=== PATIENT | male | born 1960 | race Caucasian/White ===

== ENCOUNTER 2020-10-01 20:26 | Emergency (ER) | payer OTHER, SELFPAY ==
[2020-10-01 20:41] VITALS: BP 196/97; PULSE 86; RESP 18; TEMP 36.8; O2SAT 96; BMI 32.2
[2020-10-01 20:53] VITALS: BP 177/125; PULSE 84; RESP 18; O2SAT 96
--- NOTE | 2020-10-01 21:15 | CTR_ITS ---
PROCEDURE INFORMATION: Exam: CT Head Without Contrast Exam date and time: 10/01/2020 9:19 PM Age: 60 years old Clinical indication: Weakness, extremity; Right; Additional info: Syncope, transient facial droop TECHNIQUE: Imaging protocol: Computed tomography of the head without contrast. Radiation optimization: All CT scans at this facility use at least one of these dose optimization techniques: automated exposure control; mA and/or kV adjustment per patient size (includes targeted exams where dose is matched to clinical indication); or iterative reconstruction. COMPARISON: No relevant prior studies available. RADIATION DOSE METRICS: Total DLP (mGy-cm): 942.73 FINDINGS: Brain: No hemorrhage. No significant white matter disease. No edema. Cerebral ventricles: No hydrocephalus Bones/joints: No acute fracture. Paranasal sinuses: Visualized sinuses are unremarkable. No fluid levels. Mastoid air cells: No significant mastoid effusion. Soft tissues: Unremarkable. CT/CT head wo con* [id number] IMPRESSION: No acute intracranial abnormality. Radiation Dose CTDIVOL = (mGy): DLP = 942.73 (mGy-cm)
--- NOTE | 2020-10-01 21:15 | XR_ITS ---
WS: [id number] Exam: XR chest 1V portable [id number] Date/Time of Exam: 10/01/2020 9:19 PM Reason For Exam: syncope No priors. The lungs are fully expanded and clear. 1 cm calcified density in the right lower lung zones most lik ottoniel a granuloma. Heart size is normal. There is prominence of the superior mediastinum. Regional bony elements are intact. Monitoring leads superimpose the chest. Recommendations: A detailed PA and lateral chest radiograph would be helpful for more detailed evalua tion. XR/XR chest 1V portable [id number] IMPRESSION: 1. Prominence of the superior mediastinum. A mediastinal mass or lymphadenopath y not excluded. 2. The chest is otherwise unremarkable.
--- NOTE | 2020-10-01 21:17 | ECG_ITS ---
[facility] Test Date: 2020-10-01 Pat Name: Ruiz Peterson Department: Room: Gender: Male Inventory Associate And Driver: : 1960 Requested By: Lissy Meadows I Order Number: [id number] John MD: Denise Pascual M.D. Measurements Intervals [place] Rate: 84 P: 25 MD: 145 QRS: 23 QRSD: 95 T: 41 QT: 337 QTc: 400 Interpretive Statements SINUS RHYTHM No previous ECG available for comparison Electronically Signed On 10-02-2020 17:32:10 CDT by Denise Pascual M.D. [id number]
[2020-10-01 21:26] LABS: Basophils % 0.5 %; Eosinophils % 0.5 %; Hemoglobin 16.3 g/dL (11.7-16.6); Lymphocytes # 1.8 10^3/uL (0.8-4.8); Lymphocytes % 31.3 %; Mean Corpuscular HGB Conc 33.3 g/dL (30.0-36.0); Mean Corpuscular Hemoglobin 29.4 pg (28.0-34.0); Mean Corpuscular Volume 88.4 fL (80-94); Mean Platelet Volume 9.4 fL (7.4-10.4); Monocytes # 0.4 10^3/uL (0.2-0.9); Monocytes % 7.3 %; Neutrophils # 3.49 10^3/uL (1.8-7.7); Neutrophils % 60.2 %; Nucleated Red Blood Cells % 0 %; Platelet Count 201 10^3/cmm (130-400); Red Blood Count 5.54 10^6/uL (4.1-5.3); Red Cell Distribution Width 14.7 % (12.1-15.1); White Blood Count 5.8 10^3/uL (4.0-10.0)
[2020-10-01 21:40] LABS: Troponin(5th) Baseline 9 ng/L (0-15)
[2020-10-01 21:47] LABS: Procalcitonin 0.04 ng/mL (0-0.5); Thyroid Stimulating Hormone 4.29 uIU/mL (0.27-4.20)
[2020-10-01 22:00] LABS: Alanine Aminotransferase 22 U/L (0-41); Albumin Level 4.1 g/dL (3.5-5.2); Alkaline Phosphatase 66 IU/L (40-130); Aspartate Amino Transferase 29 U/L (0-40); Blood Urea Nitrogen 11 mg/dL (6-20); C Reactive Protein 1.3 mg/L (0.0-4.9); Calcium 9.1 mg/dL (8.5-10.5); Carbon Dioxide 26 mmol/L (22-29); Chloride 101 mmol/L (98-107); Globulin 2.3 g/dL (1.3-4.6); Glomerular Filtration Rate 68.8 mL/min (90-130); Glucose 88 mg/dL (65-115); Magnesium 1.9 mg/dL (1.7-2.3); Osmolality Calculated 285 mOsm/kg (285-295); Sodium 138 mmol/L (136-145); Total Bilirubin 0.4 mg/dL (0.15-1.2); Total Protein 6.4 g/dL (6.6-8.7)
[2020-10-01 22:02] LABS: Creatine Phosphokinase 347 U/L (39-308)
[2020-10-01 22:31] VITALS: PULSE 82; RESP 12; O2SAT 94
[2020-10-01] MEDS: sodium chloride 0.9% 1,000 ML 999 ML IV (22:37)
[2020-10-01 22:39] VITALS: BP 162/104; PULSE 77; RESP 15; O2SAT 94
[2020-10-01 22:44] LABS: Add Urine Microscopic? NO; Charge for UA Resulting for Rev
[2020-10-01 22:59] LABS: Bilirubin Urine Neg (Negative); Blood Urine Neg (Negative); Glucose Urine UA Norm (Normal); Ketones Urine Negative (Negative); Leukocyte Esterase Urine Negative (Negative); Nitrate Urine Negative (Negative); Protein Urine Neg (Negative); Urine Appearance Clear (CLEAR); Urine Color Yellow (Yellow); Urobilinogen Urine 1 mg/dL (Negative); pH Urine 7 (5-7)
[2020-10-01 23:20] LABS: Troponin 5 2HR 8.04 ng/L (0-15)
[2020-10-01 23:21] LABS: Troponin 5 2HR Delta -0.96 ABS# (0-10)
[2020-10-01 23:40] VITALS: BP 175/126; PULSE 70; RESP 16; O2SAT 96
--- NOTE | 2020-10-02 | W.ED.SYNCOPE ---
HPI - Syncope General: Chief Complaint: Syncope Stated Complaint: stroke like symptoms Time Seen by Provider: 10/01/20 21:01 Source: patient and family () Mode of arrival: ambulatory Limitations: no limitations History of Present Illness: HPI narrative: Patient is a 60-year-old male with no significant past medical history other than anxiety presents to the emergency department for evaluation. Early this morning at about 10:00 he walked into [facility] and had a syncopal event. He was unconscious for just a short period and following that he was evaluated at [facility] where he was medically cleared. He was discharged and he went about his day doing things that exerted him including mowing lawns. Later in the day he developed right-sided facial numbness, his states that his speech was very slurred and she could not understand what he was saying and he had a right facial droop. This happened about 3 hours ago and the symptoms lasted for about 15 minutes and resolved spontaneously. They were concerned and so brought him in to be evaluated. The patient did admit that he injects testosterone that is not prescribed to him, he uses this for work-up. His and the patient also admits that the patient drinks 40 ounces of Mountain Dew every morning, he admits to drinking probably too much Mountain Dew. He is wondering if the above could be related to his symptoms. MD complaint: loss of consciousness Prodromal symptoms: none Witnessed: Yes - by Bystander Associated symptoms: Reports chest pain; Deny abdominal pain, fever(s), headache(s), nausea, short of breath, vertigo or weakness Treatments prior to arrival: none Review of Systems General: Reports: 10 or more systems reviewed and unremarkable except in HPI and below Const: Denies: fever(s) Card: Reports: chest pain GI: Denies: abdominal pain or nausea Neuro: Denies: headache(s) or vertigo Physical Exam Const: COMMON NORMALS: no acute distress, average body habitus, patient oriented x3, no limitations, healthy appearing, alert and well nourished HENMT: COMMON NORMALS: normocephalic, atraumatic and moist oral mucous membranes HEAD & SCALP: normocephalic and atraumatic Neck/C-Spine: COMMON NORMALS: no meningeal signs and no JVD Resp: COMMON NORMALS: normal respiratory effort, No retractions, No use of accessory muscles, clear to auscultation bilaterally and percussion normal AUSCULTATION: clear to auscultation bilaterally PERCUSSION: percussion normal Cardio: COMMON NORMALS: no JVD, regular rate, regular rhythm, S1 normal heart sound present, S2 normal heart sound present, No gallops present (Cardio), No clicks present (Cardio), No murmurs present (Cardio), No rub (Cardio) and Peripheral pulses 2+ throughout RATE: regular rate RHYTHM: regular rhythm HEART SOUNDS: S1 normal heart sound present and S2 normal heart sound present PERIPHERAL PULSES: Peripheral pulses 2+ throughout GI: COMMON NORMALS: Normal to inspection, nondistended, normoactive bowel sounds present, Soft to palpation, non-tender, No hepatosplenomegaly present, no masses and no bruits PALPATION: Yes Soft to palpation and Yes No hepatosplenomegaly present Extremity: COMMON NORMALS: normal to inspection, full ROM, capillary refill normal, no calf tenderness and no pedal edema Neuro: COMMON NORMALS: patient oriented x3 SENSORIUM/ORIENTATION: Yes alert MENINGEAL SIGNS: Yes no meningeal signs Skin: COMMON NORMALS: no rashes or lesions noted, no wounds, turgor normal, no jaundice, no petechiae and no mottling GENERAL SKIN EXAM: no rashes or lesions noted and turgor normal Course Reevaluation(s): Reevaluation #1: Discussed his lab and imaging findings with him. Explained that his evaluation is unremarkable at this time. We will discharge him home with no new orders but he is advised to avoid medications that had not prescribed. He has mildly elevated CPK and he is to drink plenty of water to prevent worsening and to prevent kidney damage. He will follow-up with his primary care provider as soon as possible. I will treat him as a possible TIA because the stated that he had slurred speech and facial droop and so a prescription for atorvastatin and aspirin were given to the patient. He voiced understanding and they are in agreement with the plan. Time: 00:00 Vital Signs: Vital signs: Vital Signs Temperature 98.3 F 10/01/20 20:41 Pulse Rate 73 10/02/20 00:28 Respiratory Rate 18 10/02/20 00:28 Blood Pressure 164/109 10/02/20 00:28 Pulse Oximetry 96 10/02/20 00:28 MDM - Syncope MDM Narrative: Medical decision making narrative: 60-year-old male who presents to the emergency department with slurred speech, facial droop, facial numbness that lasted about 15 minutes. All symptoms resolved prior to arrival in the emergency department. Evaluation in the emergency department was unremarkable and he is being managed as a case of a TIA. He was counseled and given a prescription for atorvastatin and aspirin and he is to follow-up with his primary care provider. Lab Data: Labs: Lab Results 10/01/20 10/01/20 10/01/20 Range/Units 21:05 21:05 21:05 WBC 5.8 (4.0-10.0) 10^3/ uL RBC 5.54 H (4.1-5.3) 10^6/u L Hgb 16.3 (11.7-16.6) g/dL Hct 49.0 (42.0-52.0) % MCV 88.4 (80-94) fL MCH 29.4 (28.0-34.0) pg MCHC 33.3 (30.0-36.0) g/dL RDW 14.7 (12.1-15.1) % Plt Count 201 (130-400) 10^3/c mm MPV 9.4 (7.4-10.4) fL Neut % (Auto) 60.2 % Lymph % (Auto) 31.3 % [place] % (Auto) 7.3 % Eos % (Auto) 0.5 % Baso % (Auto) 0.5 % Neut # (Auto) 3.49 (1.8-7.7) 10^3/u L Lymph # (Auto) 1.8 (0.8-4.8) 10^3/u L [place] # (Auto) 0.4 (0.2-0.9) 10^3/u L Eos # (Auto) 0.0 (0.0-0.8) 10^3/u L Baso # (Auto) 0.0 (0.0-0.1) 10^3/u L Nucleated RBC % (a uto) 0 % Nucleated RBCs # 0.0 /100WBC Sodium 138 (136-145) mmol/L Potassium 4.0 (3.5-5.1) mmol/L Chloride 101 (98-107) mmol/L Carbon Dioxide 26 (22-29) mmol/L Anion Gap 15.0 (5-19) BUN 11 (6-20) mg/dL Creatinine 1.1 (0.7-1.2) mg/dL GFR Calculation 68.8 L (90-130) mL/min Glucose 88 (65-115) mg/dL Calculated Osmolal ity 285 (285-295) mOsm/k g Calcium 9.1 (8.5-10.5) mg/dL Magnesium 1.9 (1.7-2.3) mg/dL Total Bilirubin 0.4 (0.15-1.2) mg/dL AST 29 (0-40) U/L ALT 22 (0-41) U/L Alkaline Phosphata se 66 (40-130) IU/L Creatine Kinase 347 H* (39-308) U/L Troponin T Baselin e 9 (0-15) ng/L Troponin T 120 Min kristen (0-15) ng/L Delta Troponin T (0-10) ABS# C-Reactive Protein 1.3 (0.0-4.9) mg/L Total Protein 6.4 L (6.6-8.7) g/dL Albumin 4.1 (3.5-5.2) g/dL Globulin 2.3 (1.3-4.6) g/dL Procalcitonin 0.04 (0-0.5) ng/mL TSH 4.29 H (0.27-4.20) uIU/ mL Urine Color (Yellow) Urine Appearance (CLEAR) Urine pH (5-7) Ur Specific Gravit y (1.005-1.030) Urine Protein (Negative) Urine Glucose (UA) (Normal) Urine Ketones (Negative) Urine Blood (Negative) Urine Nitrate (Negative) Urine Bilirubin (Negative) Urine Urobilinogen (Negative) mg/dL Ur Leukocyte Valencia ase (Negative) 10/01/20 10/01/20 Range/Units 22:30 22:56 WBC (4.0-10.0) 10^3/ uL RBC (4.1-5.3) 10^6/u L Hgb (11.7-16.6) g/dL Hct (42.0-52.0) % MCV (80-94) fL MCH (28.0-34.0) pg MCHC (30.0-36.0) g/dL RDW (12.1-15.1) % Plt Count (130-400) 10^3/c mm MPV (7.4-10.4) fL Neut % (Auto) % Lymph % (Auto) % [place] % (Auto) % Eos % (Auto) % Baso % (Auto) % Neut # (Auto) (1.8-7.7) 10^3/u L Lymph # (Auto) (0.8-4.8) 10^3/u L [place] # (Auto) (0.2-0.9) 10^3/u L Eos # (Auto) (0.0-0.8) 10^3/u L Baso # (Auto) (0.0-0.1) 10^3/u L Nucleated RBC % (a uto) % Nucleated RBCs # /100WBC Sodium (136-145) mmol/L Potassium (3.5-5.1) mmol/L Chloride (98-107) mmol/L Carbon Dioxide (22-29) mmol/L Anion Gap (5-19) BUN (6-20) mg/dL Creatinine (0.7-1.2) mg/dL GFR Calculation (90-130) mL/min Glucose (65-115) mg/dL Calculated Osmolal ity (285-295) mOsm/k g Calcium (8.5-10.5) mg/dL Magnesium (1.7-2.3) mg/dL Total Bilirubin (0.15-1.2) mg/dL AST (0-40) U/L ALT (0-41) U/L Alkaline Phosphata se (40-130) IU/L Creatine Kinase (39-308) U/L Troponin T Baselin e (0-15) ng/L Troponin T 120 Min kristen 8.04 (0-15) ng/L Delta Troponin T -0.96 L (0-10) ABS# C-Reactive Protein (0.0-4.9) mg/L Total Protein (6.6-8.7) g/dL Albumin (3.5-5.2) g/dL Globulin (1.3-4.6) g/dL Procalcitonin (0-0.5) ng/mL TSH (0.27-4.20) uIU/ mL Urine Color Yellow (Yellow) Urine Appearance Clear (CLEAR) Urine pH 7 (5-7) Ur Specific Gravit y 1.010 (1.005-1.030) Urine Protein Neg (Negative) Urine Glucose (UA) Norm (Normal) Urine Ketones Negative (Negative) Urine Blood Neg (Negative) Urine Nitrate Negative (Negative) Urine Bilirubin Neg (Negative) Urine Urobilinogen 1 H (Negative) mg/dL Ur Leukocyte Valencia ase Negative (Negative) Imaging Data^: CT Head: Attestation: I personally reviewed and interpreted this imaging study as follows: Radiologist's impression: [facility] [id number] Scan ReportSigned Patient: Ruiz Peterson #: [id number]: 1960cct#:[id number]/Sex: 60 / MADM Date: 10/01/20Loc: ERRoom/Bed:Attending Dr: Ordering Provider/Ordering MD: Lissy Meadows MD, [facility] [place] Date of Service: 10/01/20 Procedure(s): CT head wo con* [id number] Accession Number(s): [id number] Report Number: [id number] PROCEDURE INFORMATION: Exam: CT Head Without Contrast Exam date and time: 10/01/2020 9:19 PM Age: 60 years old Clinical indication: Weakness, extremity; Right; Additional info: Syncope, transient facial droop TECHNIQUE: Imaging protocol: Computed tomography of the head without contrast. Radiation optimization: All CT scans at this facility use at least one of these dose optimization techniques: automated exposure control; mA and/or kV adjustment per patient size (includes targeted exams where dose is matched to clinical indication); or iterative reconstruction. COMPARISON: No relevant prior studies available. RADIATION DOSE METRICS: Total DLP (mGy-cm): 942.73 FINDINGS: Brain: No hemorrhage. No significant white matter disease. No edema. Cerebral ventricles: No hydrocephalus Bones/joints: No acute fracture. Paranasal sinuses: Visualized sinuses are unremarkable. No fluid levels. Mastoid air cells: No significant mastoid effusion. Soft tissues: Unremarkable. CT/CT head wo con* [id number] IMPRESSION: No acute intracranial abnormality. Radiation Dose CTDIVOL = (mGy): DLP = 942.73 (mGy-cm) Dictated By:Joaquin Saunders MDSigned By:Joaquin Saunders MDSigned Date/Time:10/01/202236DD/ 34 EKG Data^: EKG 1: Attestation: I personally reviewed and interpreted this EKG as follows: EKG interpretation date: 10/01/20 EKG interpretation time: 20:58 Prior EKG tracings: available for review Interpretation: Sinus rhythm. Heart rate 84 bpm. Normal axis. No ST changes. EKG 2: Attestation: I personally reviewed and interpreted this EKG as follows: EKG interpretation date: 10/01/20 EKG interpretation time: 23:52 Prior EKG tracings: available for review Interpretation: Sinus rhythm. Heart rate 70 bpm. Normal axis. No ST changes. No significant change from earlier Discharge Plan Discharge Patient Disposition: Home Clinical Impression: Brain TIA Condition: Stable Prescriptions: New atorvastatin 40 mg tablet 40 mg PO DAILY Qty: 30 RF: 0 Adult Aspirin Regimen 81 mg tablet,delayed release (DR/EC) 81 mg PO DAILY Qty: 30 RF: 0 Continued Aleve 220 mg Tablet 220 - 440 mg PO Q12H PRN (Reason: Pain) RF: 0 escitalopram oxalate 20 mg tablet 20 mg PO DAILY RF: 0 Discharge Orders: Discharge ED (Routine); Ordered 10/02/20 Ordered By: Lissy Meadows Referrals: Alvarado Fernandez MD [Primary Care Provider] - 10/02/20 Discharge Diet: Usual diet Discharge Activity: Increase activity as tolerated Patient Instructions: Transient Ischemic Attack (ED) Activity Restrictions/Additional Instructions: Return for any new or worsening symptoms. Follow-up with Dr. Fernandez tomorrow as scheduled to discuss your blood pressure and your thyroid function tests. You may need to be started on some blood pressure medicines. I have given you prescription for aspirin and cholesterol medicine, you can discuss with Dr. Arrieta on whether you need to start them or not. You will be contacted by the housing case manager to schedule an appointment for an ultrasound of your heart as well as an ultrasound of the arteries that supply blood to your brain. It is important to reduce your caffeine intake. Coding Level of Care Code ED [facility] for Chg Fwd
[2020-10-02 00:28] VITALS: BP 164/109; PULSE 73; RESP 18; O2SAT 96
--- NOTE | 2020-10-02 11:27 | DCPLANNER ---
applications project manager had message to schedule an outpatient echo cardiogram and carotid doppler for patient. applications project manager faxed signed order to centralized scheduling. applications project manager will call for appointment information.
--- NOTE | 2020-10-03 07:40 | DCPLANNER ---
Addendum entered by Kate Bailon 10/09/20 07:37: Patient has an outpatient echo scheduled for Friday, October 30, 2020 at 11:00. Centralized scheduling will call patient with appointment information. Original Note: Patient has a outpatient carotid scheduled for October at 11:00. Centralized scheduling will call patient with appointment information.
--- NOTE | 2020-11-22 15:00 | DCPLANNER ---
Patient had a follow up appointment scheduled for 10.30.20 for an echo and 10.25.20 for a carotid duplex - these appointments were cancelled.
== END 2020-10-02 00:29 | disposition home or self-care (01) ==
PROVIDERS: Emergency Provider Family Medicine; PCP Family Medicine
DX: G45.9 Transient cerebral ischemic attack, unspecified (principal)
CPT/HCPCS: 36415; 70450; 71045; 80053; 81003; 82550; 83735; 84145; 84443; 84484; 85025; 86140; 93005; 96360; 99284; J7030

== ENCOUNTER → 2022-08-14 09:27 | Outpatient (BNVA) | payer OTHER, SELFPAY | PROVIDERS: PCP Family Medicine; Visit Provider Family Medicine | DX: Z00.00 Encounter for general adult medical examination without abnormal findings (principal); R35.1 Nocturia | CPT/HCPCS: 80053; 80061; 84153; 84443 ==

== ENCOUNTER → 2024-02-25 08:20 | Outpatient (BNVA) | payer OTHER, SELFPAY | PROVIDERS: PCP Family Medicine; Visit Provider Physician Assistant | DX: M17.12 Unilateral primary osteoarthritis, left knee (principal) | CPT/HCPCS: 73560; 73565 ==